=== PATIENT | female | born 1980 | race Caucasian/White ===

== ENCOUNTER 2017-09-20 17:46 | Emergency (ER) | payer OTHER ==
[~2017-09-20] VITALS: Ht 167.6 cm; Wt 78.0 kg
[~2017-09-20 17:46] MED LIST: ALBUTEROL 3 ML3 ML INH; ALBUTEROL SULFAT3 M1 INH; ALPRAZOLAM2 MG PO; AMITRIPTYLINE H25 M1; AMITRIPTYLINE50 MG PO; ASPIRIN EC325 M2 PO; ASPIRIN EC325 MG PO; AUGMENTIN 875875 MG PO; BACTROBAN OINT.22 GM TOP; CIPRO 500MG TA500 MG PO; CYMBALTA 30 MG30 MG PO; CYMBALTA30 M1 PO; CYMBALTA60 MG PO; DILAUDID2 MG PO; DOXYCYCLINE MO100 MG PO; DURAGESIC25 MCG TOP; ENDOCET 325 MG-1 TA1 PO; ESCITALOPRAM10 MG PO; GABAPENTIN300 MG PO; HYDROCHLOROTHIA25 MG PO; LAMICTAL 25MG25 MG PO; LAMOTRIGINE25 M3 PO; LATUDA20 M1 PO; LATUDA60 M1 PO; LATUDA80 M1 PO; LEADER MELATONIN5 MG PO; LEVEMIR 10100 UNITS/ SC; LEVEMIR100 U/ML SC; LEVEMIR100 UNIT/1 SC; LIDODERM 5% PAT1 PAT TOP; LORAZEPAM1 MG PO; LYRICA50 MG PO; LYRICA75 MG PO; MAALOX PLUS30 ML PO; MELATONIN10 M5 PO; METOCLOPRAMIDE10 MG PO; MINIPRESS1 MG PO; MIRALAX17 GM PO; MOTRIN 400MG (400 MG PO; NEBULIZER MACHINE INH/SOL; NEURONTIN300 MG PO; NICODERM C21 MG/24 H TOP; NICODERM C7 MG/24 HR TOP; NICOTINE T14 MG/24 H TD; NICOTINE T21 MG/24 H TOP; NICOTINE T7 MG/24 H1 TD; NOVOLOG 10300 UNITS/; NOVOLOG100 U/ML SC; NOVOLOG100 UNIT/2 SC; OMEPRAZOLE40 MG PO; ONDANSETRON4 M1 SL; OXYCODONE HCL20 M1 PO; OXYCODONE HCL30 MG PO; OXYCODONE5 M1 PO; OXYCODONE5 MG PO; PERCOCET 325 MG1 TA2 PO; PERCOCET 5-3251 EACH PO; PLAQUENIL200 MG PO; PRAVASTATIN SOD10 MG PO; PREDNISONE 20MG20 MG PO; PYRIDIUM200 MG PO; REGLAN5 MG PO; ROBITUSSIN W/CO10 ML PO; ROXICODONE30 MG PO; ROXICODONE5 MG PO; TESSALON PERLE100 MG PO; TOPICAINE 4%1 TBE TOP; TRIAMTERENE/HCT1 TA2 PO; VALIUM5 M1 PO; VITAMIN D50000 IU PO; VOLTAREN GEL1% TOP; XANAX1 MG PO; XANAX2 MG PO; ZANAFLEX2 MG PO
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
[2017-09-20 20:03] LABS: ABSOLUTE BASOPHIL COUNT 0 /CUMM (0.0-0.2); ABSOLUTE EOSINOPHIL COUNT 0.2 /CUMM (0.0-0.7); ABSOLUTE GRANULOCYTE CT 5.1 /CUMM (1.4-6.5); ABSOLUTE LYMPH COUNT 1.8 /CUMM (1.2-3.4); ABSOLUTE MONOCYTE COUNT 0.3 /CUMM (0.10-0.60); BASOPHIL % 0.3 % (0.0-2.0); EOSINOPHIL % 2.2 % (0-5); GRANULOCYTE % 68.5 % (42.2-75.2); HEMATOCRIT 40.6 % (37-47); MEAN CORPUSCULAR HGB CONC 33.3 G/DL (33.0-37.0); PLATELET COUNT 265 /CUMM (130-400); RBC DISTRIBUTION WIDTH 13.1 % (11.5-14.5); RED BLOOD CELL CT 4.66 /CUMM (4.20-5.40); WHITE BLOOD CELL COUNT 7.4 /CUMM (4.8-10.8)
--- NOTE | 2017-09-20 20:59 | CT SCAN REPORT ---
EXAMINATION: CT ABDOMEN AND PELVIS WITHOUT CONTRAST CLINICAL INFORMATION: Right-sided abdominal pain. COMPARISON: 09/30/2014. TECHNIQUE: Contiguous axial thin section helical images of the abdomen and pelvis were performed without oral or IV contrast. The data set was reformatted in the coronal and sagittal planes and reviewed on an independent workstation. DLP: 258 mGy-cm. FINDINGS: There are small bilateral pleural effusions with associated passive bibasilar atelectasis. The visualized portions of the heart are unremarkable. The liver is of normal size and attenuation without focal lesions nor intrahepatic biliary ductal dilation. A normal gallbladder is identified. There is no wall thickening or discernible pericholecystic fluid. The spleen, pancreas, adrenal glands are unremarkable. Both kidneys are of normal size and attenuation without hydronephrosis or nephrolithiasis. There is no abdominal free fluid. There is neither mesenteric nor retroperitoneal lymphadenopathy. Normal unopacified loops of small and large bowel are identified. A normal appendix is identified. A left iliac stent is in place. There is a small amount of pelvic free fluid. The urinary bladder is unremarkable. There is neither pelvic nor inguinal lymphadenopathy. Bone windows: Neither sclerotic nor lytic bone lesions are identified. IMPRESSION: Examination limited secondary to the lack of IV contrast; however, evidence for acute abdominal or pelvic inflammatory or infectious processes. A normal appendix is identified. Small bilateral pleural effusions with associated bibasilar airspace disease. Small amount of pelvic free fluid, likely physiologic.
[2017-09-20 21:00] VITALS: BP 110/66
[2017-09-20] MEDS ORDERED: OXYCODONE HCL5 M2 PO (21:09)
== END 2017-09-20 21:24 ==
LOC: ERH 17:46
PROVIDERS: Physician Assistant Medical
DX: R10.31 Right lower quadrant pain (principal)
CPT/HCPCS: 74177; 81003; 81025; 96361; 96374

== ENCOUNTER → 2017-11-11 | Day surgery (SDC) | payer OTHER ==
[~2017-11-11] VITALS: Ht 167.6 cm; Wt 75.3 kg
[~2017-11-11] MED LIST changes: +COZAAR50 M1 PO; +LAMOTRIGINE25 M3; +LATUDA120 M1 PO; +OXYCODONE HCL5 M2 PO; +XANAX2 M1 PO
--- NOTE | 2017-11-15 09:35 | Operative Report ---
See Addendum Operative/Inv Procedure Report Surgery Date: 11/11/17 Name of Procedure: Laparoscopic tubal sterilization Pre-Operative Diagnosis: Multiparity Post-Operative Diagnosis: Same Estimated Blood Loss: 50ml to 100ml Surgeon/Chronic Disease Epidemiologist: Vernon TORRES,Anais Glez Anesthesia: general endotracheal tube Operative/Procedure Note Note: Procedure note patient was taken the operating room placed supine position after adequate anesthesia patient placed in dorsolithotomy position vagina from dorsal fashion bladder was catheterized sterilely patient tolerated this well. Antonio cannula was placed in the cervix gentle downward traction patient tolerated that well surgeon regowned and gloved abdominal part case at the level the umbilicus stab incision was made to allow for the entry of Veress needle the abdomen was insufflated possibly 4 L of CO2 to liver edge dullness which point the Veress needle was removed a 10 mm trocar was inserted atraumatically at the umbilicus the sheath laparoscope was placed under direct visualization a 5 mm port was placed 2 fingerbreadths of symptoms pubis in the midline through that port on a Kleppinger was placed right tube was picked up carried to its fimbriated end possibly 7 cm that tube was Bovie coagulated patient tolerated that well. Left tube was picked up carried to its fimbriated end and approximately 7 cm that tube was Bovie coag the patient tolerated that well at this point maximal CO2 was removed from the abdomen pictures have been taken incision the umbilicus after oral and specimens removed was closed using 0 I interrupted 4-0 suture's were used for the skin of both incisions Marcaine was injected underneath both incisions sterile dressings were applied at the end of the case Antonio cannula was moved the Matthews was removed the patient was returned spine position she was awakened from anesthesia and transferred recovery room awake alert with counts correct Findings: Tubes and ovaries bilaterally
== END ==
LOC: STS 01:52
DX: Z30.2 Encounter for sterilization (principal); E11.9 Type 2 diabetes mellitus without complications; Z79.84 Long term (current) use of oral hypoglycemic drugs; M06.9 Rheumatoid arthritis, unspecified
CPT/HCPCS: 81025; 88305; C9399; J0131; J1885; J2250

== ENCOUNTER 2017-11-23 18:11 | Inpatient (IN) | payer OTHER ==
[~2017-11-23] VITALS: Ht 167.6 cm; Wt 74.0 kg
[~2017-11-23 18:11] MED LIST changes: -COZAAR50 M1 PO; -LAMOTRIGINE25 M3; -LATUDA120 M1 PO
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
[2017-11-23 19:58] LABS: ABSOLUTE BASOPHIL COUNT 0 /CUMM (0.0-0.2); ABSOLUTE EOSINOPHIL COUNT 0 /CUMM (0.0-0.7); ABSOLUTE GRANULOCYTE CT 20.9 /CUMM (1.4-6.5); ABSOLUTE LYMPH COUNT 0.8 /CUMM (1.2-3.4); ABSOLUTE MONOCYTE COUNT 0.4 /CUMM (0.10-0.60); BASOPHIL % 0.1 % (0.0-2.0); EOSINOPHIL % 0.1 % (0-5); HEMATOCRIT 46.7 % (37-47); MEAN CORPUSCULAR HGB 29.1 PG (27.0-31.0); MEAN CORPUSCULAR HGB CONC 32.8 G/DL (33.0-37.0); MEAN CORPUSCULAR VOLUME 88.4 FL (81.0-99.0); MEAN PLATELET VOLUME 13.8 FL (7.4-10.4); PLATELET COUNT 265 /CUMM (130-400); RBC DISTRIBUTION WIDTH 13.7 % (11.5-14.5); RED BLOOD CELL CT 5.28 /CUMM (4.20-5.40); WHITE BLOOD CELL COUNT 22.3 /CUMM (4.8-10.8)
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
[2017-11-24] VITALS: BP 145/74
[2017-11-24] MEDS ORDERED: LAMOTRIGINE25 M3 (01:25)
[2017-11-24] MEDS ORDERED: LATUDA20 M1 PO (01:28)
[2017-11-24] MEDS ORDERED: LATUDA120 M1 PO (01:28)
[2017-11-24] MEDS ORDERED: MINIPRESS1 MG PO (01:29)
[2017-11-24] MEDS ORDERED: COZAAR50 M1 PO (01:30)
--- NOTE | 2017-11-24 01:31 | Admission Certification ---
Admission Certification Certification Statement - As attending physician, I certify that at the time of - admission, based on clinical presentation, severity of - symptoms, need for further diagnostic testing and - therapeutic interventions, and risk of adverse outcomes - without in-hospital treatment, in my clinical assessment, - this patient requires an acute hospital stay for a minimum - of two nights or longer. I have also considered psychsocial - factors such as support system, advanced age, financial - issues, cognitive issues, and failed out-patient treatments, - past re-admission history, safety of patient, and lack of - compliance as applicable. Specific rationale supporting this admission is: Severe DKA
[2017-11-24 05:16] LABS: ABSOLUTE BASOPHIL COUNT 0 /CUMM (0.0-0.2); ABSOLUTE EOSINOPHIL COUNT 0 /CUMM (0.0-0.7); ABSOLUTE GRANULOCYTE CT 22.3 /CUMM (1.4-6.5); ABSOLUTE LYMPH COUNT 1.5 /CUMM (1.2-3.4); BASOPHIL % 0 % (0.0-2.0); EOSINOPHIL % 0 % (0-5); MEAN CORPUSCULAR HGB 28.9 PG (27.0-31.0); MEAN CORPUSCULAR HGB CONC 32.8 G/DL (33.0-37.0); MEAN CORPUSCULAR VOLUME 88.1 FL (81.0-99.0); MEAN PLATELET VOLUME 13.5 FL (7.4-10.4); PLATELET COUNT 278 /CUMM (130-400); RBC DISTRIBUTION WIDTH 13.7 % (11.5-14.5); RED BLOOD CELL CT 4.65 /CUMM (4.20-5.40); WHITE BLOOD CELL COUNT 24.8 /CUMM (4.8-10.8)
[2017-11-24 08:00] VITALS: BP 144/70
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
--- NOTE | 2017-11-24 08:53 | PN- Diabetes ---
Assessment/Plan Diabetes Assessment: 37-year-old lady with past medical history of type 1 diabetes diagnosed at age 22 currently on NovoLog and Tresibia,, bipolar, anxiety, status post D&C on November 18 for endometrial pathology, is brought in by his fianc for evaluation of weakness. In ER, blood work showedglucose 494, K 5.3, bicarb < 5, Ph 7.10, Cr 0.9. Drug screen showed positive for Benzo, methadone and cannabis. In ER, she received 4 liters of NS. She has been on insulin drip overnight. Currently she is on D51/2 NS with 20 meq of KCL at 100 ml per hour and her FSG was 270. Repeat am lab showed glucose 205, sodium 144, K 4.8, bicarb < 5, AG 25. Subjective Subjective: She stated that she feels better. Objective Last 24 Hrs of Vital Signs/I&O Vital Signs Date Time Temp Pulse Resp B/P B/P Pulse O2 O2 Flow FiO2 Mean Ox Delivery Rate 11/24 0900 118 149/73 11/24 0800 98.0 131 28 144/70 98 Room Air 11/24 0400 100 Room Air 11/24 0000 99.2 146 31 145/74 100 Room Air 11/24 0000 100 Room Air 11/23 2133 98.3 127 18 154/84 100 Room Air 11/23 2031 100 Room Air 11/23 2030 99.4 131 18 132/100 100 Room Air 11/23 1827 98.3 144 18 164/95 98 Room Air Intake & Output 11/24 1600 11/24 0800 11/24 0000 Intake Total 835 4000 Output Total 350 Balance 485 4000 Intake, IV 715 4000 Intake, Oral 120 0 Output, 100 Emesis Output, Urine 250 Patient 163 lb Weight Weight Bed scale Measurement Method
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
--- NOTE | 2017-11-24 11:57 | RADIOLOGY REPORT ---
EXAMINATION: XR PORTABLE CHEST CLINICAL INFORMATION: Rule out infection. DKA. Elevated white blood cell count. COMPARISON: Chest x-ray dated 04/01/2015. TECHNIQUE: Portable frontal view of the chest was obtained. FINDINGS: No airspace opacities or pleural effusions are seen. There is a rightward curvature of the thoracic spine. The cardiomediastinal silhouette is normal. IMPRESSION: Clear lungs. No acute process.
[2017-11-24 14:35] LABS: PTT 31 SEC (25-37)
[2017-11-24 16:00] VITALS: BP 150/80
[2017-11-25] VITALS: BP 109/59
--- NOTE | 2017-11-25 07:43 | PN- Resident CRCU ---
Karine TORRES,Otilia 11/25/17 0742: Subjective HPI/CRCU Issues: 1. DKA 2. Leukocytosis - probably secondary to stress 3. Bipolar disorder with anxiety 4. HTN 5. Emesis 24 Hour Events: No acute overnight issues. She reports feeling better, persistent right chest pain without any shortness of breath. No more nausea/vomiting. Denies any abdominal pain. VS Tmax 98.9, HR 100-131 sinus tachy, BP 140-150/60-70mmHg, saturating well on RA. Labs white count of 9.6, stable H&H, Na 139, K 3.7, Cl 117, Bicarbonate 14, AG 13, Cr 0.6, Mag 1.7, Phos 1.3. Objective Vital Signs & I&O Last 8 Hrs of Vitals and I&O: Intake & Output 11/25 0800 Intake Total 1568 Output Total 2300 Balance -732 Intake, IV 1568 Intake, Oral 0 Number 0 Bowel Movements Output, 500 Emesis Output, Urine 1800 Exam General Appearance: well developed/nourished, no apparent distress, alert, awake , comfortable Head: atraumatic, normal appearance Ears, Nose, Throat: normal pharynx, normal ENT inspection Neck: normal inspection, supple, full range of motion Respiratory: normal breath sounds, no respiratory distress, quiet respiration, lungs clear, tenderness to palpation on right lateral chest wall. Cardiovascular: regular rate/rhythm, normal peripheral pulses, normal heart sounds Gastrointestinal: normal bowel sounds, soft, non-tender Extremities: normal inspection, normal capillary refill, normal range of motion Cranial Nerves: normal hearing, normal speech, PERRL Skin: intact, normal color, warm/dry IV Drips IV Drips: IV insulin, IV NSD5@ 150ml/hr Nutrition Nutrition: clear liquid diet Current Medications: Current Medications Sig/Oscar Start time Last Medication Dose Route Stop Time Status Admin Acetaminophen 1,000 MG .STK-MED ONE 11/25 0112 DC IV 11/25 011 Acetaminophen 1,000 MG Q6P PRN 11/235 AC 11/25 N/A 1 UNIT IV 0113 Alprazolam 1 MG TID 11/24 09 AC 11/25 PO 12/01 0859 1433 Aspirin Buffered 325 MG DAILY 11/24 09 AC 11/25 PO 0929 Benzonatate 100 MG TID PRN 11/24 1400 AC 11/24 PO 1318 Duloxetine HCl 90 MG DAILY 11/24 0900 AC 11/25 PO 0928 Enoxaparin Sodium 40 MG DAILY 11/24 0900 AC 11/25 SC 0929 Insulin Human Regular 100 UNIT Q24H 11/23 2215 AC 11/25 Sodium Chloride 100 ML IV 0545 Lamotrigine 100 MG QPM 11/24 2100 AC 11/24 PO 2144 Lamotrigine 50 MG QAM 11/24 0900 AC 11/25 PO 0929 Losartan Potassium 50 MG DAILY 11/24 0900 AC 11/25 PO 0928 Lurasidone HCl 120 MG QPM 11/24 2100 AC 11/24 PO 2144 Lurasidone HCl 20 MG QAM 11/24 1245 AC 11/25 PO 0929 Magnesium Sulfate 1 GM ONCE ONE 11/24 1530 [place] 11/24 Dextrose/Water 100 ML IV 11/24 1929 1529 Morphine Sulfate 2 MG ONCE ONE 11/25 1130 [place] 11/25 IV 11/25 1131 1127 Morphine Sulfate 2 MG Q6P PRN 11/25 0700 11/25 IV 0653 Ondansetron HCl 4 MG .STK-MED ONE 11/25 0545 NY IM 11/25 0546 Ondansetron HCl 4 MG .STK-MED ONE 11/24 2323 [place] IM 11/24 2324 Ondansetron HCl 4 MG Q4-6 PRN PRN 11/23 2245 11/25 IV 0545 Pantoprazole Sodium 40 MG DAILY 11/24 1059 11/25 IV 0930 Phosphate 250 MG PC AND AT BEDTIME 11/25 1300 AC 11/25 PO 1315 Potassium Chloride 40 MEQ Q6H 11/25 1315 AC 11/25 Dextrose/Sodium 1,000 ML IV 1316 Chloride Potassium Chloride 10 MEQ ONCE ONE 11/25 0045 DC 11/25 IV 11/25 0046 0043 Potassium Chloride 40 MEQ SEE ADMIN CRITERIA 11/24 2345 CAN IV Potassium Chloride 40 MEQ Q6H 11/24 2345 DC 11/25 Dextrose/Sodium 1,000 ML IV 0645 Chloride Potassium Chloride 20 MEQ Q6H 11/24 2345 CAN Sodium Chloride 1,000 ML IV Potassium Chloride 20 MEQ Q6H 11/24 2345 CAN Dextrose/Sodium 1,000 ML IV Chloride Potassium Chloride 20 MEQ Q6H 11/24 0830 DC 11/24 Dextrose/Sodium 1,000 ML IV 1408 Chloride Potassium Phosphate 15 mMol ONE ONE 11/25 0400 DC 11/25 Sodium Chloride 250 ML IV 11/25 0804 0416 Potassium Phosphate 15 mMol ONE ONE 11/24 1515 DC 11/24 Dextrose/Water 250 ML IV 11/24 191 1641 Trimethobenzamide HCl 200 MG 4 TIMES/DAY PRN 11/25 0800 AC 11/25 IM 0928 CXR Findings: Normal yesterday Impression/Plan Impression/Problem List Impression: Patient is a 37 YO F with PMH significant for Type I DM, HTN, Hepatic adenoma, bipolar disorder with anxiety, osteomyelitis presents to [facility] with weakness, lethargy, poor per oral intake and persistently elevated sugars for the past 4days. She had an episode of vomiting PUMPER GAUGER and 2 episodes on 1st day of hospitalization. She recently underwent D&C for endometritis, cervicitis along with tubal ligation on November 15 by . Patient was found to be severe tachycardic, tachypneic, acidotic with pH of 7.10, PCO2 of 8, bicarbonate of 2.5. Blood sugar at presentation was 494 with anion gap of 29. Patient obviously has DKA but causes unclear. She states that she has been compliant with her insulin even though she was not eating properly at home. She has leukocytosis with WBC of 22k & neutrophil 94%. At this point no obvious source of infection identified, she has mild right upper quadrant tenderness on deep palpation but no guarding or rigidity, no suprapubic tenderness. She was started on IV bicarbonate drip in ER which was discontinued by admitting team as pH >6.9. Admitted to ICU Problem list 1. DKA 2. Leukocytosis - probably secondary to stress 3. Bipolar disorder with anxiety 4. HTN 5. Hepatic adenoma PLAN Diabetic Ketoacidosis Blood sugars of 494, profoundly acidotic with pH of 7.10 and AG 29, Urine is positive for ketones. She was profoundly dehydrated given Na of 141 at presentation. She was started on IV insulin and 1/2NS at admission. She was aggressively hydrated on Day 1 with 2L NS bolus followed by maintenence with D51 /2NS @ 150ml/hr. AG closed on day 1 however bicarbonate persisted to be on lower side. * continue Insulin drip with D51/2NS until bicarbonate ~18. * Once Bicarb ~18 we will overlap with SC insulin for 2hrs. * Started on clear liquid diet without high sugar fluids (like juices) * Endocrine on board - will follow up with their recommendations. Leukocytosis - resolved White count of 22 increased to 24 with granulocytosis without any bandemia. No clear source. * White count of 9.6 today. Emesis - resolved. Patient had an episode PUMPER GAUGER, 2 episodes this am. Responded to zofran. Able to tolerate pills. She did have dry cough. * IV protonix, IV zofran as needed (QTc <500). * CXR is normal * Tessalon pearls for dry cough Bipolar disoder with anxiety Patient had a psychiatrist. She was on multiple medications for long time. * continue Lamotrigine 50mg AM and 100mg PM * Continue Latuda and duloxetine for now * She was on xanax PRN for anxiety, we will hold off for now. HTN HCTZ on hold, we will continue once well hydrated. Continue losartan. DVT prophylaxis SC lovenox Code status Full Code Problem List: 1. DKA, type 1 2. Dehydration 3. Weakness Pain Ratin Pain Location: right rib pain Tomorrow's Labs & Rationales: cbc, icu bundle. Plan DVT/Prophylaxis: pharmacological Sandeep Shaw MD 11/25/17 1007: Attending MD Review Statement Attending Sign Off Attending Cosign Statement: I have: examined this patient, reviewed al EMR data, personally reviewd images, discussd w/resident/PA/QUESTIONED DOCUMENTS EXAMINER, discussed mgmt plan w/juan, discussed mgmt plan w/CM, discussed mgmt plan w/pt, agreed w/resident/PA/QUESTIONED DOCUMENTS EXAMINER, amended to note. Other Findings: Sandeep Styles M.D. have examined this patient, reviewed available EMR data, personally reviewed images, discussed with resident/PA/QUESTIONED DOCUMENTS EXAMINER, discussed management plan with housestaff and nursing staff, discussed managment plan all of healthcare providers, discussed management plan with patient and/or family, agreed with resident/PA/QUESTIONED DOCUMENTS EXAMINER. The past history and parts of the chart have been autopopulated. Impression 37 year old woman * severe DKA - ketoacidosis likely from poor adherence to therapy and recent D&C procedure * leukocytosis - most likely stress, however monitoring for any infections Plan -f/u endocrinology -continue hydration, monitor and replete electrolytes as needed -monitor off abx, await culture results, monitor wbc -awaiting blood work this am -maintained on insulin gtt until bicarbonate reaches >18 DVT prophylaxis at all times TTS 35 min
[2017-11-25 08:00] VITALS: BP 130/76
--- NOTE | 2017-11-25 08:34 | PN- Diabetes ---
Assessment/Plan Diabetes Assessment: 37-year-old lady with past medical history of type 1 diabetes diagnosed at age 22 currently on NovoLog and Tresibia,, bipolar, anxiety, status post D&C on November 18 for endometrial pathology, is brought in by his fianc for evaluation of weakness. She was admitted to ICU for DKA. She has been on D51/2 NS with 40 meq of KCL at 150 ml per hour and insulin drip at 2 units per hour. However, her FSGs over past several hours were > 200. She still feels nauseous. But she would like to have some soup. AG has closed. But her bicarb is still loww. AM lab showed sodium 139, K 3.3, Cl 113 and bicarb 11. Plan: 1. continue insulin drip for now; monitor FSG every one hour; adjust the rate to keep FSGs between 100 and 200; 2. continue the current IVF; 3. replete K; 4. monitor electrolytes every 6-8 hours; 5. start clear liquid diet w/o concentrated sweets ( no juices); 6. please inform me if her bicarb is close to 18 and she tolerates the clear liquid diet, then IVF and her insulin regimen will be adjusted accordingly. will follow. Subjective Subjective: She feels better; but she still feels nauseous. Objective Last 24 Hrs of Vital Signs/I&O Vital Signs Date Time Temp Pulse Resp B/P B/P Pulse O2 O2 Flow FiO2 Mean Ox Delivery Rate 11/25 0400 100 Room Air 11/25 0000 100 Room Air 11/25 0000 98.6 118 28 109/59 100 Room Air 11/24 2000 99 Nasal 2.0L Cannula 11/24 1600 98.9 104 24 150/80 99 Room Air 11/24 0900 118 149/73 Intake & Output 11/25 1600 11/25 0800 11/25 0000 Intake Total 1568 1492 Output Total 2300 1900 Balance -732 -408 Intake, IV 1568 1392 Intake, Oral 0 100 Number 0 1 Bowel Movements Output, 500 Emesis Output, Urine 1800 1900 Findings Pertinent Lab/Terrance Results: Laboratory Tests 11/25 11/24 11/24 11/24 11/24 0155 2356 2150 1900 1337 Chemistry Sodium (137 - 145 mmol/L) 139 138 Cancelled 141 Potassium (3.5 - 5.1 mmol/L) 3.3 L 3.4 L Cancelled 3.7 Chloride (98 - 107 mmol/L) 113 H 114 H Cancelled 116 H Carbon Dioxide (22 - 30 mmol/L) 11 L 13 L Cancelled 10 L Anion Gap (5 - 16) 15 11 Cancelled 15 BUN (7 - 17 mg/dL) < 2 L 2 L Cancelled 4 L Creatinine (0.5 - 1.0 mg/dL) 0.5 0.6 Cancelled 0.6 Estimated GFR (>60 ml/min) > 60 > 60 > 60 BUN/Creatinine Ratio (7 - 25 %) 4.0 L Glucose (65 - 99 mg/dL) 214 H Cancelled 140 H Calcium (8.4 - 10.2 mg/dL) 7.8 L Cancelled 7.7 L Phosphorus (2.5 - 4.5 mg/dL) 0.8 *L Cancelled 1.2 L Cancelled 1.3 L Magnesium (1.6 - 2.3 mg/dL) 1.8 Cancelled 1.6 Total Bilirubin (0.2 - 1.3 mg/dL) 0.7 Cancelled 0.7 AST (14 - 36 U/L) 12 L Cancelled 12 L ALT (9 - 52 U/L) 25 Cancelled 23 Albumin (3.5 - 5.0 g/dL) 3.0 L Cancelled 3.4 L Coagulation PT (9.4 - 12.5 SEC) 11.0 INR (0.90 - 1.19) 1.01 APTT (25 - 37 SEC) 11/24 0837 Chemistry Sodium (137 - 145 mmol/L) 142 Potassium (3.5 - 5.1 mmol/L) 4.9 Chloride (98 - 107 mmol/L) 114 H Carbon Dioxide (22 - 30 mmol/L) 6 *L Anion Gap (5 - 16) 22 H BUN (7 - 17 mg/dL) 5 L Creatinine (0.5 - 1.0 mg/dL) 0.8 Estimated GFR (>60 ml/min) > 60 Glucose (65 - 99 mg/dL) 244 H Calcium (8.4 - 10.2 mg/dL) 8.5 Phosphorus (2.5 - 4.5 mg/dL) 2.5 Magnesium (1.6 - 2.3 mg/dL) 1.7 Total Bilirubin (0.2 - 1.3 mg/dL) 0.6 AST (14 - 36 U/L) 14 ALT (9 - 52 U/L) 23 Troponin I (< 0.11 ng/ml) 0.07 Albumin (3.5 - 5.0 g/dL) 3.9 Lipase (23 - 300 U/L) 73
[2017-11-25 10:56] LABS: ABSOLUTE BASOPHIL COUNT 0 /CUMM (0.0-0.2); ABSOLUTE EOSINOPHIL COUNT 0 /CUMM (0.0-0.7); ABSOLUTE LYMPH COUNT 1.1 /CUMM (1.2-3.4); ABSOLUTE MONOCYTE COUNT 0.6 /CUMM (0.10-0.60); BASOPHIL % 0.2 % (0.0-2.0); EOSINOPHIL % 0.3 % (0-5); GRANULOCYTE % 82.5 % (42.2-75.2); MEAN CORPUSCULAR HGB 29.2 PG (27.0-31.0); MEAN CORPUSCULAR HGB CONC 34.2 G/DL (33.0-37.0); MEAN CORPUSCULAR VOLUME 85.6 FL (81.0-99.0); MEAN PLATELET VOLUME 11.2 FL (7.4-10.4); PLATELET COUNT 200 /CUMM (130-400); RBC DISTRIBUTION WIDTH 13.6 % (11.5-14.5); RED BLOOD CELL CT 4.11 /CUMM (4.20-5.40)
[2017-11-25 11:02] LABS: HEMATOCRIT 35.2 % (37-47); WHITE BLOOD CELL COUNT 9.6 /CUMM (4.8-10.8)
[2017-11-25 16:00] VITALS: BP 120/70
[2017-11-25 23:00] VITALS: BP 134/80
[2017-11-26 04:46] LABS: ABSOLUTE BASOPHIL COUNT 0 /CUMM (0.0-0.2); ABSOLUTE EOSINOPHIL COUNT 0.1 /CUMM (0.0-0.7); ABSOLUTE GRANULOCYTE CT 3.5 /CUMM (1.4-6.5); ABSOLUTE LYMPH COUNT 1.6 /CUMM (1.2-3.4); ABSOLUTE MONOCYTE COUNT 0.4 /CUMM (0.10-0.60); BASOPHIL % 0.4 % (0.0-2.0); EOSINOPHIL % 1.5 % (0-5); GRANULOCYTE % 62.6 % (42.2-75.2); HEMATOCRIT 35.9 % (37-47); MEAN CORPUSCULAR HGB 29.4 PG (27.0-31.0); MEAN CORPUSCULAR VOLUME 86.3 FL (81.0-99.0); MEAN PLATELET VOLUME 10.4 FL (7.4-10.4); PLATELET COUNT 164 /CUMM (130-400); RBC DISTRIBUTION WIDTH 14.1 % (11.5-14.5); RED BLOOD CELL CT 4.15 /CUMM (4.20-5.40); WHITE BLOOD CELL COUNT 5.6 /CUMM (4.8-10.8)
--- NOTE | 2017-11-26 07:38 | PN- Housestaff ---
Objective Last 24 Hrs of Vital Signs/I&O Vital Signs Date Time Temp Pulse Resp B/P B/P Pulse O2 O2 Flow FiO2 Mean Ox Delivery Rate 11/25 2300 98.2 103 23 134/80 100 Room Air 11/25 1600 98.6 98 20 120/70 98 Room Air 11/25 0800 99.4 112 18 130/76 100 Room Air Intake & Output 11/26 0800 11/26 0000 11/25 1600 Intake Total 1329 1849 2513 Output Total 1000 900 700 Balance 651 622 5749 Intake, IV 1029 1529 1413 Intake, Oral 054 547 0240 Number 0 0 0 Bowel Movements Output, Urine 1000 900 700 Patient 74.021 kg Weight
[2017-11-26 08:00] VITALS: BP 110/70
--- NOTE | 2017-11-26 09:16 | PN- Diabetes ---
Assessment/Plan Diabetes Assessment: 37-year-old lady with past medical history of type 1 diabetes diagnosed at age 22 currently on NovoLog and Tresibia,, bipolar, anxiety, status post D&C on November 18 for endometrial pathology, is brought in by his fianc for evaluation of weakness. She was admitted to ICU for DKA. She has been on D51/2 NS with 40 meq of KCL at 125 ml per hour. DKA resolved last night. She was put on Levemir 12 units twice a day and Novolog coverage every 4 hours. Her FSGs were 266, 271 and 112. Patient has tolerated clear liquid diet. Plan: 1. start consistent carbohydrates 1 diet; 2. stop IVF 3. decrease Levemir to 10 units twice a day; 4. start Novolog coverage before meals and Novolog coverage at bedtime;detail see the inpatient DM orders; 5. monitor FSGs. 6. replete K; 7. monitor electrolytes later today just to make sure. will follow. Inpatient Diabetes Orders Before Each Meal: Bolus Insulin: Novolog < 80 mg/dl: no coverage 80-100 mg/dl: 4 units 101-120 mg/dl: 4 units 121-150 mg/dl: 4 units 151-200 mg/dl: 5 units 201-250 mg/dl: 6 units 251-300 mg/dl: 8 units 301-350 mg/dl: 10 units 351-400 mg/dl: 11 units > 400 mg/dl: 12 units Bedtime: Bolus Insulin: Novolog < 80 mg/dl: no coverage 80-100 mg/dl: no coverage 101-120 mg/dl: no coverage 121-150 mg/dl: no coverage 151-200 mg/dl: no coverage 201-250 mg/dl: no coverage 251-300 mg/dl: 2 units 301-350 mg/dl: 3 units 351-400 mg/dl: 4 units > 400 mg/dl: 5 units Subjective Subjective: She feels better this morning. Objective Last 24 Hrs of Vital Signs/I&O Laboratory Tests 11/26 11/25 11/25 0415 2151 1510 Chemistry Sodium (137 - 145 mmol/L) 143 140 139 Potassium (3.5 - 5.1 mmol/L) 3.4 L 3.9 3.6 Chloride (98 - 107 mmol/L) 114 H 112 H 112 H Carbon Dioxide (22 - 30 mmol/L) 20 L 18 L 17 L Anion Gap (5 - 16) 9 10 9 BUN (7 - 17 mg/dL) < 2 L < 2 L < 2 L Creatinine (0.5 - 1.0 mg/dL) 0.5 0.5 0.5 Estimated GFR (>60 ml/min) > 60 > 60 > 60 Glucose (65 - 99 mg/dL) 109 H 143 H 229 H Calcium (8.4 - 10.2 mg/dL) 7.9 L 8.0 L 7.9 L Phosphorus (2.5 - 4.5 mg/dL) 1.3 L 1.9 L 1.1 L Magnesium (1.6 - 2.3 mg/dL) 1.6 1.6 1.7 Total Bilirubin (0.2 - 1.3 mg/dL) 0.9 1.0 0.7 AST (14 - 36 U/L) 16 18 14 ALT (9 - 52 U/L) 24 23 19 Albumin (3.5 - 5.0 g/dL) 2.8 L 3.1 L 2.8 L Hematology CBC w Diff NO MAN DIFF REQ WBC (4.8 - 10.8 /CUMM) 5.6 RBC (4.20 - 5.40 /CUMM) 4.15 L Hgb (12.0 - 16.0 G/DL) 12.2 Hct (37 - 47 %) 35.9 L MCV (81.0 - 99.0 FL) 86.3 MCH (27.0 - 31.0 PG) 29.4 MCHC (33.0 - 37.0 G/DL) 34.0 RDW (11.5 - 14.5 %) 14.1 Plt Count (130 - 400 /CUMM) 164 MPV (7.4 - 10.4 FL) 10.4 Gran % (42.2 - 75.2 %) 62.6 Lymphocytes % (20.5 - 51.1 %) 27.8 Monocytes % (1.7 - 9.3 %) 7.7 Eosinophils % (0 - 5 %) 1.5 Basophils % (0.0 - 2.0 %) 0.4 Absolute Granulocytes (1.4 - 6.5 /CUMM) 3.5 Absolute Lymphocytes (1.2 - 3.4 /CUMM) 1.6 Absolute Monocytes (0.10 - 0.60 /CUMM) 0.4 Absolute Eosinophils (0.0 - 0.7 /CUMM) 0.1 Absolute Basophils (0.0 - 0.2 /CUMM) 0 11/25 1020 Chemistry Sodium (137 - 145 mmol/L) 139 Potassium (3.5 - 5.1 mmol/L) 3.7 Chloride (98 - 107 mmol/L) 112 H Carbon Dioxide (22 - 30 mmol/L) 14 L Anion Gap (5 - 16) 13 BUN (7 - 17 mg/dL) < 2 L Creatinine (0.5 - 1.0 mg/dL) 0.6 Estimated GFR (>60 ml/min) > 60 Glucose (65 - 99 mg/dL) 261 H Calcium (8.4 - 10.2 mg/dL) 8.0 L Phosphorus (2.5 - 4.5 mg/dL) 1.3 L Magnesium (1.6 - 2.3 mg/dL) 1.7 Total Bilirubin (0.2 - 1.3 mg/dL) 0.8 AST (14 - 36 U/L) 15 ALT (9 - 52 U/L) 26 Albumin (3.5 - 5.0 g/dL) 3.0 L Hematology CBC w Diff NO MAN DIFF REQ WBC (4.8 - 10.8 /CUMM) 9.6 RBC (4.20 - 5.40 /CUMM) 4.11 L Hgb (12.0 - 16.0 G/DL) 12.0 Hct (37 - 47 %) 35.2 L MCV (81.0 - 99.0 FL) 85.6 MCH (27.0 - 31.0 PG) 29.2 MCHC (33.0 - 37.0 G/DL) 34.2 RDW (11.5 - 14.5 %) 13.6 Plt Count (130 - 400 /CUMM) 200 MPV (7.4 - 10.4 FL) 11.2 H Gran % (42.2 - 75.2 %) 82.5 H Lymphocytes % (20.5 - 51.1 %) 11.2 L Monocytes % (1.7 - 9.3 %) 5.8 Eosinophils % (0 - 5 %) 0.3 Basophils % (0.0 - 2.0 %) 0.2 Absolute Granulocytes (1.4 - 6.5 /CUMM) 8.0 H Absolute Lymphocytes (1.2 - 3.4 /CUMM) 1.1 L Absolute Monocytes (0.10 - 0.60 /CUMM) 0.6 Absolute Eosinophils (0.0 - 0.7 /CUMM) 0 Absolute Basophils (0.0 - 0.2 /CUMM) 0 Vital Signs Date Time Temp Pulse Resp B/P B/P Pulse O2 O2 Flow FiO2 Mean Ox Delivery Rate 11/25 2300 98.2 103 23 134/80 100 Room Air 11/25 1600 98.6 98 20 120/70 98 Room Air Intake & Output 11/26 1600 11/26 0800 11/26 0000 Intake Total 1329 1849 Output Total 1000 900 Balance 329 949 Intake, IV 1029 1529 Intake, Oral 300 320 Number 0 0 Bowel Movements Output, Urine 1000 900
--- NOTE | 2017-11-26 10:18 | PN- Resident CRCU ---
Karine TORRES,Otilia 11/26/17 1016: Subjective HPI/CRCU Issues: Right lateral chest pain DKA - resolved 24 Hour Events: Patient remained stable. Right rib pain still persists. Reports pain in the lower abdominal region. No acute overnight events. Still on D51/2NS @ 125ml/hr at bedside. Objective Vital Signs & I&O Last 8 Hrs of Vitals and I&O: Vital Signs Date Time Temp Pulse Resp B/P B/P Pulse O2 O2 Flow FiO2 Mean Ox Delivery Rate 11/25 2300 98.2 103 23 134/80 100 Room Air 11/25 1600 98.6 98 20 120/70 98 Room Air Intake & Output 11/26 1600 11/26 0800 11/26 0000 Intake Total 1329 1849 Output Total 1000 900 Balance 329 949 Intake, IV 1029 1529 Intake, Oral 300 320 Number 0 0 Bowel Movements Output, Urine 1000 900 Exam General Appearance: well developed/nourished, no apparent distress, alert, awake , comfortable Head: atraumatic, normal appearance Ears, Nose, Throat: normal pharynx Neck: normal inspection, supple Respiratory: normal breath sounds, chest non-tender, no respiratory distress, quiet respiration Cardiovascular: regular rate/rhythm, normal peripheral pulses Gastrointestinal: normal bowel sounds, soft, non-tender, a small area of stitch in the lower abdominal region with mild serosanguinous discharge present Extremities: normal inspection, normal capillary refill, normal range of motion Cranial Nerves: normal hearing, normal speech, PERRL Skin: intact, normal color, areas of lap surgery still present Skin Temp/Moisture Exam: Warm/Dry IV Drips IV Drips: none Nutrition Nutrition: P.O. diet Current Medications: Current Medications Sig/Oscar Start time Last Medication Dose Route Stop Time Status Admin Acetaminophen 1,000 MG Q6P PRN 11/235 AC 11/25 N/A 1 UNIT IV 0113 Alprazolam 1 MG TID 11/24 899 AC 11/26 PO 12/01 0859 1336 Aspirin Buffered 325 MG DAILY 11/24 899 AC 11/26 PO 0946 Benzonatate 100 MG TID PRN 11/24 1400 AC 11/24 PO 1318 Duloxetine HCl 90 MG DAILY 11/24 899 AC 11/26 PO 0945 Enoxaparin Sodium 40 MG DAILY 11/24 899 AC 11/26 SC 0944 Insulin Aspart 0 AT BEDTIME 11/26 2100 [facility] Insulin Aspart 9 UNITS .STK-MED ONE 11/26 171 DC AR 11/26 1713 Insulin Aspart 0 TIDAC 11/26 1200 AC 11/26 AR 1723 Insulin Aspart 0 Q4H 11/26 0400 SD 11/26 AR 0436 Insulin Aspart 0 Q4 11/26 0200 [facility] Insulin Aspart 9 UNITS ONCE ONE 11/26 0015 DC 11/26 AR 11/26 0016 0007 Insulin Detemir 10 UNITS BID 11/26 0900 AC 11/26 SC 0947 Insulin Detemir 12 UNITS BID 11/25 2315 SD 11/25 AR 2312 Insulin Human Regular 100 UNIT Q24H 11/23 2215 DC 11/25 Sodium Chloride 100 ML IV 0545 Lamotrigine 100 MG QPM 11/24 2100 AC 11/25 PO 2100 Lamotrigine 50 MG QAM 11/24 0900 AC 11/26 PO 0945 Losartan Potassium 50 MG DAILY 11/24 0900 AC 11/26 PO 0946 Lurasidone HCl 120 MG QPM 11/24 2100 AC 11/25 PO 2100 Lurasidone HCl 20 MG QAM 11/24 1245 AC 11/26 PO 0945 Magnesium Oxide 400 MG BID 11/26 0900 AC 11/26 PO 0944 Morphine Sulfate 2 MG Q6P PRN 11/26 0800 AC 11/26 IV 1922 Morphine Sulfate 2 MG Q6P PRN 11/25 0700 SD 11/26 IV 0250 Ondansetron HCl 4 MG Q4-6 PRN PRN 11/23 2245 AC 11/25 IV 0545 Pantoprazole Sodium 40 MG DAILY 11/24 1059 AC 11/26 IV 0944 Phosphate 500 MG ONCE ONE 11/26 0600 DC 11/26 PO 11/26 0601 0606 Phosphate 250 MG PC AND AT BEDTIME 11/25 1300 AC 11/26 PO 1722 Polyethylene Glycol 17 GM DAILY 11/26 09 AC PO Potassium Chloride 40 MEQ .STK-MED ONE 11/26 1712 DC PO 11/26 1713 Potassium Chloride 60 MEQ ONCE ONE 11/26 0530 DC 11/26 PO 11/26 0531 0517 Potassium Chloride 40 MEQ Q6H 11/25 1315 DC 11/26 Dextrose/Sodium 1,000 ML IV 0251 Chloride Potassium Phosphate 15 mMol ONE ONE 11/25 1700 DC 11/25 Dextrose/Water 250 ML IV 11/26 2103 1815 Senna/Docusate Sodium 2 TAB DAILY 11/26 0900 AC 11/26 PO 0944 Trimethobenzamide HCl 200 MG 4 TIMES/DAY PRN 11/25 0800 AC 11/25 IM 0928 Impression/Plan Impression/Problem List Impression: Patient is a 37 YO F with PMH significant for Type I DM, HTN, Hepatic adenoma, bipolar disorder with anxiety, osteomyelitis presents to [facility] with weakness, lethargy, poor per oral intake and persistently elevated sugars for the past 4days. 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 She recently underwent D&C for endometritis, cervicitis along with tubal ligation on November 15 by . Patient was found to be severe tachycardic, tachypneic, acidotic with pH of 7.10, PCO2 of 8, bicarbonate of 2.5. Blood sugar at presentation was 494 with anion gap of 29. Patient obviously has DKA but causes unclear. She states that she has been compliant with her insulin even though she was not eating properly at home. She has leukocytosis with WBC of 22k & neutrophil 94%. At this point no obvious source of infection identified, she has mild right upper quadrant tenderness on deep palpation but no guarding or rigidity, no suprapubic tenderness. She was started on IV bicarbonate drip in ER which was discontinued by admitting team as pH >6.9. Admitted to ICU Problem list 1. DKA 2. Leukocytosis - probably secondary to stress 3. Bipolar disorder with anxiety 4. HTN 5. Hepatic adenoma PLAN Diabetic Ketoacidosis Blood sugars of 494, profoundly acidotic with pH of 7.10 and AG 29, Urine is positive for ketones. She was profoundly dehydrated given Na of 141 at presentation. She was started on IV insulin and 1/2NS at admission. She was aggressively hydrated on Day 1 with 2L NS bolus followed by maintenence with D51/2NS @ 150ml/hr. AG closed on day 1, however bicarbonate closed by day 2. She was started on levemir 10units BID, ISS per endocrinology suggestions. on board. Leukocytosis - resolved White count of 22 increased to 24 with granulocytosis without any bandemia. No clear source. Improved by day 2. Emesis - resolved. 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 Responded to zofran. Able to tolerate pills. She did have dry cough. On tessalon pearls for cough. IV zofran as needed. Multiple electrolyte derrangements - Hypokalemia Improved once stopped on Insulin drip. Aggressively repleted. - Hypomagnesemia Persistently low. Repleted as needed. - Hypophosphatemia Phosphours to as low as 0.8. Continously repleted IV and currently on Neutraphos. Please replete accordingly. Right lateral rib pain Secondary to fall. She had significant pain with normal CXR. we started on morphine/lidoderm patches. Please consider rib series if continues to persists. Bipolar disoder with anxiety Patient had a psychiatrist. She was on multiple medications for long time. We continued on her home medications - Lamotrigine 50mg AM and 100mg PM. Also continued Latuda and duloxetine for now. She was on xanax PRN for anxiety - holeded. Plan to continue at discharge. HTN HCTZ on hold, we will continue once well hydrated. Continue losartan. DVT prophylaxis SC lovenox Code status Full Code Problem List: 1. Diabetes mellitus 2. Hypertension 3. Anxiety 4. Diabetic keto-acidosis 5. Tachycardia 6. Hyperglycemia 7. Rib contusion 8. Diabetes type 1, uncontrolled Pain Ratin Pain Location: right rib region Tomorrow's Labs & Rationales: bep , phos, mag to monitor lytes Plan DVT/Prophylaxis: pharmacological Sandeep Shaw MD 11/26/17 1240: Attending MD Review Statement Attending Sign Off Attending Cosign Statement: I have: examined this patient, reviewed avalbl EMR data, personally reviewd images, discussd w/resident/PA/UNEMPLOYMENT CLAIMS ADJUDICATOR, discussed mgmt plan w/juan, discussed mgmt plan w/CM, discussed mgmt plan w/pt, agreed w/resident/PA/UNEMPLOYMENT CLAIMS ADJUDICATOR, amended to note. Other Findings: Sandeep Styles M.D. have examined this patient, reviewed available EMR data, personally reviewed images, discussed with resident/PA/UNEMPLOYMENT CLAIMS ADJUDICATOR, discussed management plan with housestaff and nursing staff, discussed managment plan all of healthcare providers, discussed management plan with patient and/or family, agreed with resident/PA/UNEMPLOYMENT CLAIMS ADJUDICATOR. The past history and parts of the chart have been autopopulated. Impression 37 year old woman * severe DKA - ketoacidosis likely from poor adherence to therapy and recent D&C procedure * leukocytosis - resolved Plan -f/u endocrinology -off insulin gtt -glucose management per endocrine -leukocytosis resolved DVT prophylaxis at all times TTS 35 min DG to GM
[2017-11-26 16:00] VITALS: BP 106/70
--- NOTE | 2017-11-26 19:53 | Transfer of Care Summary ---
Hospital Course Course Hospital Course: Reason for ICU admission - DKA HPI Patient is a 37 YO F with PMH significant for Type I DM, HTN, Hepatic adenoma, bipolar disorder with anxiety, osteomyelitis presents to [facility] with weakness, lethargy, poor per oral intake and persistently elevated sugars for the past 4days. 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 She recently underwent D&C for endometritis, cervicitis along with tubal ligation on November 15 by . Patient was found to be severe tachycardic, tachypneic, acidotic with pH of 7.10, PCO2 of 8, bicarbonate of 2.5. Blood sugar at presentation was 494 with anion gap of 29. Patient obviously has DKA but causes unclear. She states that she has been compliant with her insulin even though she was not eating properly at home. She has leukocytosis with WBC of 22k & neutrophil 94%. At this point no obvious source of infection identified, she has mild right upper quadrant tenderness on deep palpation but no guarding or rigidity, no suprapubic tenderness. She was started on IV bicarbonate drip in ER which was discontinued by admitting team as pH >6.9. Interval events in ICU Diabetic Ketoacidosis Blood sugars of 494, profoundly acidotic with pH of 7.10 and AG 29, Urine is positive for ketones. She was profoundly dehydrated given Na of 141 at presentation. She was started on IV insulin and 1/2NS at admission. She was aggressively hydrated on Day 1 with 2L NS bolus followed by maintenence with D51/2NS @ 150ml/hr. AG closed on day 1, however bicarbonate was very low and closed by day 2. Started on clear liquid diet and advanced to carbohydrate consistent 1 diet. She was started on levemir 10units BID, ISS per endocrinology suggestions. on board. Recent D&C and tubal ligation Patient do not wish to have kids and underwent procedure. She was scheduled to have any appointment on 11/26/17 for follow up. She reports abdominal pain in the hypogastric region with mild serosaguinous discharge. No fever/white count. Low suspicion for infection. Consulted . Leukocytosis - resolved White count of 22 increased to 24 with granulocytosis without any bandemia. No clear source. Improved by day 2. Emesis - resolved. 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 Responded to zofran. Able to tolerate pills. She did have dry cough. On tessalon pearls for cough. IV zofran as needed. Multiple electrolyte derrangements - Hypokalemia Improved once stopped on Insulin drip. Aggressively repleted. - Hypomagnesemia Persistently low. Repleted as needed. - Hypophosphatemia Phosphours to as low as 0.8. Continously repleted IV and currently on Neutraphos. Please replete accordingly. Right lateral rib pain Secondary to fall. She had significant pain with normal CXR. we started on morphine/lidoderm patches. Please consider rib series if continues to persists. Bipolar disoder with anxiety Patient had a psychiatrist. She was on multiple medications for long time. We continued on her home medications - Lamotrigine 50mg AM and 100mg PM. Also continued Latuda and duloxetine for now. She was on xanax PRN for anxiety - holeded. Plan to continue at discharge. HTN HCTZ on hold, we will continue once well hydrated. Continue losartan. NIPPV: none Antibiotics:none Catheters/IV access: peripheral IV Things to follow up Endocrinology discharge recommendations on insulin OBGYN for lower abdominal pain if persists Rib series Xray if rib pain persists Electorlytes - specifically Mag, Phos DVT prophylaxis SC lovenox Code status Full Code Complications: none Significant Procedures: CXR on 11/25/17 IMPRESSION: Clear lungs. No acute process. Pertinent Lab Results: as above Assessment/Plan: as above
[2017-11-26 21:17] VITALS: BP 100/78
[2017-11-27 06:45] VITALS: BP 106/68
--- NOTE | 2017-11-27 08:19 | PN- Housestaff ---
Raymon TORRES,Rochelle 11/27/17 0818: Subjective Follow-up For: DKA Subjective: Patient seen and examined at bedside. She was sitting in her bed comfortably. No overnight events. Patient denies nausea, vomiting, abdominal pain, dizziness , chest pain. Review of Systems Constitutional: Reports: no symptoms, see HPI. Objective Last 24 Hrs of Vital Signs/I&O Vital Signs Date Time Temp Pulse Resp B/P B/P Pulse O2 O2 Flow FiO2 Mean Ox Delivery Rate 11/27 0956 120/82 11/27 0754 94 106/68 11/27 0645 98.4 94 18 106/68 98 11/26 2117 97.9 103 18 100/78 99 Room Air 11/26 1600 97.2 108 18 106/70 97 Room Air Intake & Output 11/27 1600 11/27 0800 11/27 0000 Intake Total 200 400 Output Total Balance 200 400 Intake, Oral 200 400 Number 0 Bowel Movements Physical Exam General Appearance: Alert, Oriented X3, Cooperative, No Acute Distress Cardiovascular: Normal S1, Normal S2, No Murmurs Lungs: Normal Air Movement Abdomen: Soft, No Tenderness, No Hepatospenomegaly Neurological: Strength at 5/5 X4 Ext, Normal Tone, Sensation Intact Current Medications: Current Medications Sig/Oscar Start time Last Medication Dose Route Stop Time Status Admin Acetaminophen 1,000 MG Q6P PRN 11/23 2215 DC 11/25 N/A 1 UNIT IV 0113 Alprazolam 1 MG TID 11/24 09 AC 11/27 PO 12/01 0859 0754 Aspirin Buffered 325 MG DAILY 11/24 09 AC 11/27 PO 0754 Benzonatate 100 MG TID PRN 11/24 1400 AC 11/24 PO 1318 Duloxetine HCl 90 MG DAILY 11/24 09 AC 11/27 PO 0753 Enoxaparin Sodium 40 MG DAILY 11/24 09 AC 11/27 SC 0755 Insulin Aspart 0 AT BEDTIME 11/26 2100 AC SC Insulin Aspart 9 UNITS .STK-MED ONE 11/26 1712 DC SC 11/26 171 Insulin Aspart 0 TIDAC 11/26 1200 AC 11/27 SC 0755 Insulin Detemir 10 UNITS BID 11/26 0900 AC 11/27 SC 0756 Lamotrigine 100 MG QPM 11/24 2100 AC 11/26 PO 210 Lamotrigine 50 MG QAM 11/24 0900 AC 11/27 PO 0753 Losartan Potassium 50 MG DAILY 11/24 0900 AC 11/27 PO 0754 Lurasidone HCl 120 MG QPM 11/24 2100 AC 11/26 PO 210 Lurasidone HCl 20 MG QAM 11/24 1245 AC 11/27 PO 0757 Magnesium Oxide 400 MG BID 11/26 0900 AC 11/27 PO 0753 Morphine Sulfate 2 MG Q6P PRN 11/26 0800 MO 11/27 IV 0159 Morphine Sulfate 2 MG Q6P PRN 11/25 0700 DC 11/26 IV 0250 Omeprazole 20 MG DAILY AC 11/27 0822 AC PO Ondansetron HCl 4 MG Q4-6 PRN PRN 11/23 2245 DC 11/25 IV 0545 Oxycodone HCl 5 MG Q6-PRN PRN 11/27 0830 AC 11/27 PO 0958 Pantoprazole Sodium 40 MG DAILY 11/24 1059 DC 11/27 IV 0754 Phosphate 250 MG PC AND AT BEDTIME 11/25 1300 AC 11/27 PO 0755 Polyethylene Glycol 17 GM DAILY 11/26 09 AC 11/27 PO 0758 Potassium Chloride 40 MEQ .STK-MED ONE 11/26 1712 DC PO 11/26 1713 Senna/Docusate Sodium 2 TAB DAILY 11/26 09 11/27 PO 0753 Trimethobenzamide HCl 200 MG 4 TIMES/DAY PRN 11/25 0800 AC 11/25 IM 0928 Last 24 Hrs of Lab/Terrance Results Last 24 Hrs of Labs/Mics: Laboratory Tests 11/27/17 0832: Anion Gap 11, Estimated GFR > 60, BUN/Creatinine Ratio 4.0 L, Magnesium 2.0, Alkaline Phosphatase 108 Assessment/Plan Assessment: Patient is a 37 YO F with PMH significant for Type I DM, HTN, Hepatic adenoma, bipolar disorder with anxiety, osteomyelitis presents to [facility] with weakness, lethargy, poor per oral intake and persistently elevated sugars Assessment and plan 1. DKA 2. Leukocytosis - probably secondary to stress 3. Bipolar disorder with anxiety 4. HTN 5. Hepatic adenoma 1.Diverticular ketoacidosis-resolved * Patient is on Levemir 10 twice a day and NovoLog sliding scale insulin.Her FSGs were 89, 201, 144, 110, 61 and 130. Patient was seen by endocrinology. Suggested to decrease and NovoLog sliding scale insulin before meals. 2. Leukocytosis-resolved 3. Chronic medical condition-bipolar/ hypertension continue current management. Code-full code, DVT prophylaxis-Lovenox Problem List: 1. DKA, type 1 Pain Ratin Pain Location: none Pain Goal: Remain pain free Pain Plan: tylenol Tomorrow's Labs & Rationales: cbc,bep Lillian Segundo MD 11/27/17 1907: Attending MD Review Statement Attending Statement Attending MD Statement: examined this patient, discuss w/resident/PA/GEAR MACHINE OPERATOR, agreed w/resident/PA/GEAR MACHINE OPERATOR, reviewed EMR data (avail)
[2017-11-27 09:56] VITALS: BP 120/82
--- NOTE | 2017-11-27 11:51 | PN- Diabetes ---
Assessment/Plan Diabetes Assessment: 37-year-old lady with past medical history of type 1 diabetes diagnosed at age 22 currently on NovoLog and Tresibia,, bipolar, anxiety, status post D&C on November 18 for endometrial pathology, is brought in by his fianc for evaluation of weakness. She was admitted to ICU for DKA. DKA resolved. She was put on Levemir 10 units twice a day, Novolog coverage before meals and Novolog coverage at bedtime. Her FSGs were 89, 201, 144, 110, 61 and 130. Plan: 1. continue Levemir 10 units twice a day; 2. decrease Novolog coverage before meals; detail see the inpatient DM order; 3. continue the current Novolog coverage at bedtime; 4. monitor FSGs. will follow. Inpatient Diabetes Orders Before Each Meal: Bolus Insulin: Novolog < 80 mg/dl: no coverage 80-100 mg/dl: 3 units 101-120 mg/dl: 3 units 121-150 mg/dl: 3 units 151-200 mg/dl: 4 units 201-250 mg/dl: 5 units 251-300 mg/dl: 6 units 301-350 mg/dl: 8 units 351-400 mg/dl: 10 units > 400 mg/dl: 12 units Subjective Subjective: She feels better Objective Last 24 Hrs of Vital Signs/I&O Vital Signs Date Time Temp Pulse Resp B/P B/P Pulse O2 O2 Flow FiO2 Mean Ox Delivery Rate 11/27 0956 120/82 11/27 0754 94 106/68 11/27 0645 98.4 94 18 106/68 98 11/26 2117 97.9 103 18 100/78 99 Room Air 11/26 1600 97.2 108 18 106/70 97 Room Air Intake & Output 11/27 1600 11/27 0800 11/27 0000 Intake Total 200 400 Output Total Balance 200 400 Intake, Oral 200 400 Number 0 Bowel Movements Findings Pertinent Lab/Terrance Results: Laboratory Tests 11/27 0832 Chemistry Sodium (137 - 145 mmol/L) 145 Potassium (3.5 - 5.1 mmol/L) 4.0 Chloride (98 - 107 mmol/L) 106 Carbon Dioxide (22 - 30 mmol/L) 28 Anion Gap (5 - 16) 11 BUN (7 - 17 mg/dL) < 2 L Creatinine (0.5 - 1.0 mg/dL) 0.5 Estimated GFR (>60 ml/min) > 60 BUN/Creatinine Ratio (7 - 25 %) 4.0 L Magnesium (1.6 - 2.3 mg/dL) 2.0 Alkaline Phosphatase (<127 U/L) 108
[2017-11-27 13:57] VITALS: BP 120/76
[2017-11-27 21:57] VITALS: BP 126/80
[2017-11-28 06:45] VITALS: BP 118/76
[2017-11-28 07:53] VITALS: BP 118/76
--- NOTE | 2017-11-28 08:30 | PN- Housestaff ---
See Addendum Subjective Follow-up For: DKA - resolved Subjective: Patient offers no complaints. No acute events overnight Review of Systems Constitutional: Reports: see HPI. Objective Last 24 Hrs of Vital Signs/I&O Vital Signs Date Time Temp Pulse Resp B/P B/P Pulse O2 O2 Flow FiO2 Mean Ox Delivery Rate 11/28 0753 84 118/76 11/28 0645 97.9 84 18 118/76 98 11/27 2157 98.1 90 18 126/80 98 11/27 1357 98.5 99 20 120/76 100 Room Air Intake & Output 11/28 1600 11/28 0800 11/28 0000 Intake Total 610 Output Total 500 Balance 110 Intake, IV 10 Intake, Oral 600 Number 0 Bowel Movements Output, Urine 500 Physical Exam General Appearance: Alert, Oriented X3, Cooperative, No Acute Distress Cardiovascular: Regular Rate, Normal S1, Normal S2 Lungs: Clear to Auscultation, Normal Air Movement Abdomen: Normal Bowel Sounds, Soft, No Tenderness Current Medications: Current Medications Sig/Oscar Start time Last Medication Dose Route Stop Time Status Admin Alprazolam 1 MG TID 11/24 899 AC 11/28 PO 12/01 0859 0753 Aspirin Buffered 325 MG DAILY 11/24 09 AC 11/28 PO 0752 Benzonatate 100 MG TID PRN 11/24 1400 AC 11/24 PO 1318 Duloxetine HCl 90 MG DAILY 11/24 09 AC 11/28 PO 0754 Enoxaparin Sodium 40 MG DAILY 11/24 09 AC 11/28 SC 0755 Insulin Aspart 0 AT BEDTIME 11/26 2099 AC SC Insulin Aspart 0 TIDAC 11/26 1200 AC 11/28 SC 0754 Insulin Detemir 10 UNITS BID 11/26 09 AC 11/28 SC 0754 Lamotrigine 100 MG QPM 11/24 2100 AC 11/27 PO 2018 Lamotrigine 50 MG QAM 11/24 09 AC 11/28 PO 0753 Losartan Potassium 50 MG DAILY 11/24 09 AC 11/28 PO 0753 Lurasidone HCl 120 MG QPM 11/24 2100 AC 11/27 PO 2018 Lurasidone HCl 20 MG QAM 11/24 1245 AC 11/28 PO 0751 Magnesium Oxide 400 MG BID 11/26 09 AC 11/28 PO 0752 Omeprazole 20 MG DAILY AC 11/27 0822 AC 11/28 PO 0528 Oxycodone HCl 5 MG Q6-PRN PRN 11/27 0830 AC 11/28 PO 1135 Phosphate 250 MG PC AND AT BEDTIME 11/25 1300 AC 11/28 PO 075 Polyethylene Glycol 17 GM DAILY 11/26 09 AC 11/28 PO 075 Senna/Docusate Sodium 2 TAB DAILY 11/26 0900 AC 11/28 PO 0753 Trimethobenzamide HCl 200 MG 4 TIMES/DAY PRN 11/25 08 AC 11/25 IM 0928 Last 24 Hrs of Lab/Terrance Results Last 24 Hrs of Labs/Mics: Laboratory Tests 11/28/17 0820: Anion Gap 7, Estimated GFR > 60, BUN/Creatinine Ratio 11.7, Magnesium 2.1, CBC w Diff NO MAN DIFF REQ, RBC 4.18 L, MCV 86.2, MCH 29.0, MCHC 33.7, RDW 14.1, Gran % 55.8, Lymphocytes % 33.7, Monocytes % 6.1, Eosinophils % 3.3, Basophils % 1.1, Absolute Granulocytes 3.2, Absolute Lymphocytes 1.9, Absolute Monocytes 0.3, Absolute Eosinophils 0.2, Absolute Basophils 0.1 Assessment/Plan Assessment: Patient is a 37 YO F with PMH significant for Type I DM, HTN, Hepatic adenoma, bipolar disorder with anxiety, osteomyelitis presents to the [facility] with weakness, lethargy, poor per oral intake and persistently elevated sugars Assessment and plan 1. DKA - resolved 2. Leukocytosis - probably secondary to stress - resolved 3. Bipolar disorder with anxiety 4. HTN 5. Hepatic adenoma 1.Diverticular ketoacidosis-resolved * Patient is on Levemir 10 twice a day and NovoLog sliding scale insulin * Upon discharge she will be on Tresiba 20 units daily at bedtime * Appreciate Endo recommendations Code-full code, DVT prophylaxis-Lovenox Problem List: 1. DKA, type 1 Pain Ratin Pain Location: NA Pain Goal: Remain pain free Pain Plan: NA Tomorrow's Labs & Rationales: none
[2017-11-28 09:06] LABS: ABSOLUTE BASOPHIL COUNT 0.1 /CUMM (0.0-0.2); ABSOLUTE EOSINOPHIL COUNT 0.2 /CUMM (0.0-0.7); ABSOLUTE GRANULOCYTE CT 3.2 /CUMM (1.4-6.5); ABSOLUTE LYMPH COUNT 1.9 /CUMM (1.2-3.4); ABSOLUTE MONOCYTE COUNT 0.3 /CUMM (0.10-0.60); BASOPHIL % 1.1 % (0.0-2.0); EOSINOPHIL % 3.3 % (0-5); GRANULOCYTE % 55.8 % (42.2-75.2); MEAN CORPUSCULAR HGB CONC 33.7 G/DL (33.0-37.0); MEAN CORPUSCULAR VOLUME 86.2 FL (81.0-99.0); RBC DISTRIBUTION WIDTH 14.1 % (11.5-14.5); RED BLOOD CELL CT 4.18 /CUMM (4.20-5.40); WHITE BLOOD CELL COUNT 5.7 /CUMM (4.8-10.8)
--- NOTE | 2017-11-28 09:39 | Patient Discharge Instructions ---
Discharge Instructions General Discharge Information You were seen/treated for: Uncontrolled diabetes leading to acidosis and needed IV insulin Special Instructions: Please follow-up with your PCP within a week of discharge Please follow-up with the low pressure kettle operator for further evaluation and management of diabetes We advised the patient to take Tresiba 10 units tonight as she was given 10 units of Levemir in morning in the hospital. Please start Tresiba 20 units daily at bedtime from tomorrow(11/29/2017). Diet Recommended Diet: Diabetic Activity Full Activity/No Limits: Yes Acute Coronary Syndrome Inclusion Criteria At DC or during hospital stay patient has or had the following: ACS DIAGNOSIS No Discharge Core Measures Meds if any: Prescribed or Continued at Discharge Meds if any: NOT Prescribed or Continued at Discharge Congestive Heart Failure Inclusion Criteria At DC or during hospital stay patient has or had the following: CHF DIAGNOSIS No Discharge Core Measures Meds if any: Prescribed or Continued at Discharge Meds if any: NOT Prescribed or Continued at Discharge Cerebrovascular accident Inclusion Criteria At DC or during hospital stay patient has or had the following: CVA/TIA Diagnosis No Discharge Core Measures Meds if any: Prescribed or Continued at Discharge Meds if any: NOT Prescribed or Continued at Discharge Venous thromboembolism Inclusion Criteria VTE Diagnosis No VTE Type NONE VTE Confirmed by (Test) NONE Discharge Core Measures - Per Current guidelines, there needs to be overlap - treatment for the first 5 days of Warfarin therapy. - If discharged on Warfarin prior to 5 days of - overlap therapy, the patient will need to be - assessed for post discharge needs including - *Post discharge parental anticoagulation - *Warfarin and/or parental anticoagulation education - *Follow up date to check INR post discharge At least 5 days overlap therapy as Inpatient No Meds if any: Prescribed or Continued at Discharge Note: Overlap Therapy is Warfarin and Anticoagulant Meds if any: NOT Prescribed or Continued at Discharge
--- NOTE | 2017-11-28 10:53 | PN- Diabetes ---
Assessment/Plan Diabetes Assessment: 37-year-old lady with past medical history of type 1 diabetes diagnosed at age 22 currently on NovoLog and Tresibia,, bipolar, anxiety, status post D&C on November 18 for endometrial pathology, is brought in by his fianc for evaluation of weakness. She was admitted to ICU for DKA. DKA resolved. She was put on Levemir 10 units twice a day; Novolog coverage before meals was adjusted. In addition, she is on Novolog coverage at bedtime. Her FSGs were 132,205, 236 and 194. Patient was on Tresiba 30 units daily and Novolog coverage before meals. Plan: Discharge plan for DM: --Tresita 10 units tonight as she has received Levemir 10 units in the morning in the hospital; --starting tomorrow, she will be on Tresiba 20 units daily at bedtime; --continue the current Novoloh coverage before meals; --hold off on Novolog coverage at bedtime; --monitor FSGs x 4 times a day; --f/u in office with Dr. Dale after discharge. Please let me know if there are any questions. Subjective Subjective: She feels better. Objective Last 24 Hrs of Vital Signs/I&O Vital Signs Date Time Temp Pulse Resp B/P B/P Pulse O2 O2 Flow FiO2 Mean Ox Delivery Rate 11/28 0753 84 118/76 11/28 0645 97.9 84 18 118/76 98 11/27 2157 98.1 90 18 126/80 98 11/27 1357 98.5 99 20 120/76 100 Room Air Intake & Output 11/28 1600 11/28 0800 11/28 0000 Intake Total 610 Output Total 500 Balance 110 Intake, IV 10 Intake, Oral 600 Number 0 Bowel Movements Output, Urine 500 Findings Pertinent Lab/Terrance Results: Laboratory Tests 11/28 0820 Chemistry Sodium (137 - 145 mmol/L) 139 Potassium (3.5 - 5.1 mmol/L) 4.5 Chloride (98 - 107 mmol/L) 104 Carbon Dioxide (22 - 30 mmol/L) 28 Anion Gap (5 - 16) 7 BUN (7 - 17 mg/dL) 7 Creatinine (0.5 - 1.0 mg/dL) 0.6 Estimated GFR (>60 ml/min) > 60 BUN/Creatinine Ratio (7 - 25 %) 11.7 Magnesium (1.6 - 2.3 mg/dL) 2.1 Hematology CBC w Diff NO MAN DIFF REQ WBC (4.8 - 10.8 /CUMM) 5.7 RBC (4.20 - 5.40 /CUMM) 4.18 L Hgb (12.0 - 16.0 G/DL) 12.1 Hct (37 - 47 %) 36.0 L MCV (81.0 - 99.0 FL) 86.2 MCH (27.0 - 31.0 PG) 29.0 MCHC (33.0 - 37.0 G/DL) 33.7 RDW (11.5 - 14.5 %) 14.1 Plt Count (/CUMM) Gran % (42.2 - 75.2 %) 55.8 Lymphocytes % (20.5 - 51.1 %) 33.7 Monocytes % (1.7 - 9.3 %) 6.1 Eosinophils % (0 - 5 %) 3.3 Basophils % (0.0 - 2.0 %) 1.1 Absolute Granulocytes (1.4 - 6.5 /CUMM) 3.2 Absolute Lymphocytes (1.2 - 3.4 /CUMM) 1.9 Absolute Monocytes (0.10 - 0.60 /CUMM) 0.3 Absolute Eosinophils (0.0 - 0.7 /CUMM) 0.2 Absolute Basophils (0.0 - 0.2 /CUMM) 0.1
[2017-11-28] MEDS ORDERED: TRESIBA FL100 UNIT/1 SC (11:03)
== END 2017-11-28 12:25 | DRG 420 ==
LOC: ERH 18:11 → CRI 20:23 → ERHI 20:23 → ENRESERV 20:58 → CRI 22:11 → ENTRNSPT 11-26 18:29 → 2NB 11-26 18:54 → CMPTRNSPT 11-26 19:13 → ENPENDDIS 11-28 11:47 → 2NB 11-28 12:25
PROVIDERS: Internal Medicine; Physician Assistant Medical; Preventive Medicine Public Health & General Preventive Medicine; Student in an Organized Health Care Education/Training Program
DX: E10.10 Type 1 diabetes mellitus with ketoacidosis without coma (principal); E86.0 Dehydration; E87.6 Hypokalemia; E83.42 Hypomagnesemia; E11.69 Type 2 diabetes mellitus with other specified complication; M86.9 Osteomyelitis, unspecified; Z79.4 Long term (current) use of insulin; F41.9 Anxiety disorder, unspecified; F31.9 Bipolar disorder, unspecified; Z91.81 History of falling; Z91.040 Latex allergy status; Z88.5 Allergy status to narcotic agent; Z86.19 Personal history of other infectious and parasitic diseases; I10 Essential (primary) hypertension; N72 Inflammatory disease of cervix uteri; D72.829 Elevated white blood cell count, unspecified; R07.81 Pleurodynia; D13.4 Benign neoplasm of liver; E10.42 Type 1 diabetes mellitus with diabetic polyneuropathy; R00.0 Tachycardia, unspecified
CPT/HCPCS: 2NBSP; CCU; 36415; 71045; 71100-RT; 80307; 81001; 82436; 87040; 87071; 87086; 93005; 93010; 96360; 96361; 96374; 99291; J0131; J1650; J1815; J2405; J3250; J3480; J7042

== ENCOUNTER 2018-01-31 12:47 | Emergency (ER) | payer OTHER ==
[~2018-01-31 12:47] MED LIST changes: +COZAAR50 M1 PO; +LAMOTRIGINE25 M3; +LATUDA120 M1 PO; +TRESIBA FL100 UNIT/1 SC
[2018-01-31 12:59] VITALS: BP 109/75
--- NOTE | 2018-01-31 13:31 | RADIOLOGY REPORT ---
EXAMINATION: XR SHOULDER, RIGHT CLINICAL INFORMATION: Fall with pain COMPARISON: None TECHNIQUE: AP external rotation, Grashey, scapular Y, and axillary views of the right shoulder. FINDINGS: The bones and soft tissues are normal. No fracture. Glenohumeral and acromioclavicular alignment is anatomic with normal joint space. No abnormal soft tissue calcifications. IMPRESSION: Normal right shoulder.
--- NOTE | 2018-01-31 13:35 | RADIOLOGY REPORT ---
EXAMINATION: XR RIBS, RIGHT CLINICAL INFORMATION: Fall with pain COMPARISON: 11/21/2017 TECHNIQUE: 3 views of the right ribs were obtained. FINDINGS: Lungs are clear. No consolidation, pneumothorax, or pleural effusion. The cardiomediastinal silhouette and pulmonary vasculature are normal. Osseous structures are unremarkable. Ribs are intact. No acute displaced fractures are identified. IMPRESSION: Unremarkable examination.
[2018-01-31] MEDS ORDERED: OXYCODONE HCL5 M1 PO (14:05)
[2018-01-31] MEDS ORDERED: IBUPROFEN800 M1 PO (14:05)
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
== END 2018-01-31 14:25 ==
LOC: ERH 12:47
DX: S46.911A Strain of unspecified muscle, fascia and tendon at shoulder and upper arm level, right arm, initial encounter (principal); S20.211A Contusion of right front wall of thorax, initial encounter; W01.190A Fall on same level from slipping, tripping and stumbling with subsequent striking against furniture, initial encounter; Y92.9 Unspecified place or not applicable; Y93.9 Activity, unspecified; R07.81 Pleurodynia; I10 Essential (primary) hypertension
CPT/HCPCS: 71100-RT; 73030-RT